=== PATIENT | female | born 1965 | race Caucasian/White ===

== ENCOUNTER 2020-11-09 05:34 | Day surgery (SDC) | payer OTHER ==
[~2020-11-09] VITALS: Ht 160 cm; Wt 59.0 kg
[2020-11-09] MEDS ORDERED: fentaNYL citrate 0.05 MG/ML VIAL ONE (07:41)
[2020-11-09] MEDS ORDERED: diphenhydrAMINE 50 MG/ML VIAL ONE (07:41)
[2020-11-09] MEDS ORDERED: LIDOCAINE 2% 100 MG/5 ML UJET TP ONE ×2 (07:42→08:00)
[2020-11-09] MEDS ORDERED: MIDAZOLAM 5 MG/5 ML VIAL ONE (07:42)
[2020-11-09] MEDS ORDERED: fentaNYL citrate 0.05 MG/ML VIAL IVP ONE (08:00)
[2020-11-09] MEDS ORDERED: MIDAZOLAM 2 MG/2 ML VIAL IVP ONE (08:00)
== END 2020-11-09 08:35 | disposition home or self-care (01) ==
LOC: MDS 05:34 → MFCC 05:51 → MDS 08:35
PROVIDERS: ATTEND Internal Medicine Gastroenterology
DX: R10.9 Unspecified abdominal pain (principal); Z87.891 Personal history of nicotine dependence; Z79.899 Other long term (current) drug therapy
CPT/HCPCS: 45380; J2250; J3010; 88305; J1200